=== PATIENT | female | born 1935 | race Caucasian/White ===

== ENCOUNTER 2020-10-27 10:44 | Inpatient (IN) | payer MEDICARE ==
[~2020-10-27] VITALS: Ht 157.5 cm; Wt 92.2 kg
--- NOTE | 2020-10-27 10:44 | NUR ---
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 NEURO PGD: [address] ARORA
--- NOTE | 2020-10-27 10:53 | NUR ---
1042 code neuro paged 1044 neurology paged 1046 pt arrived 1051 code neuro cancelled [address] taylor spoke with neurologist.
--- NOTE | 2020-10-27 11:00 | NUR ---
ERP WAS IN TO SPEAK WITH PT AND [facility]. PER MEDIC, PT'S SON STATED PT'S SPEECH IS SLURRED, DIFFERENT THAN NORMAL AND LLE WEAKNESS CAUSED PT TO FALL. PT STATES SHE DOESN'T FEEL ANY DIFFERENT THAN NORMAL; STATES HER L LEG IS WEAK D/T SWELLING. LABS BEING DRAWN NOW, ERP TO CONSULT WITH NEUROLOGIST.
[2020-10-27] MEDS ORDERED: GABAPENTIN (11:04)
[2020-10-27] MEDS ORDERED: METFORMIN (11:04)
[2020-10-27] MEDS ORDERED: AMLODIPINE (11:04)
[2020-10-27] MEDS ORDERED: METOPROLOL (11:04)
[2020-10-27 11:14] LABS: BASOPHILS % (AUTO) 0 % (0-1); EOSINOPHILS % (AUTO) 4 % (1-7); LYMPHOCYTES % (AUTO) 4 % (22-44); MEAN CORPUSCULAR HEMOGLOBIN 31.9 pg (27.0-34.8); MEAN CORPUSCULAR HGB CONC 34.2 g/dL (32.4-35.8); MEAN PLATELET VOLUME 7.3 fL (7.4-10.4); MONOCYTES % (AUTO) 4 % (2-9); NEUTROPHILS % (AUTO) 88 % (42-75); PLATELET COUNT 195 x10^3/uL (130-400); RED BLOOD COUNT 3.98 x10^6/uL (3.82-5.3); RED CELL DISTRIBUTION WIDTH 13.6 % (9.6-15.2)
[2020-10-27 11:17] LABS: MD NO
[2020-10-27 11:26] LABS: ALBUMIN 3.7 g/dL (3.4-5.0); ANION GAP 9 mmol/L (5-15); CALCIUM 9.7 mg/dL (8.5-10.1); CHLORIDE 106 mmol/L (98-107)
--- NOTE | 2020-10-27 12:15 | NUR ---
US DONE AT . ASSISTED PT [place] [facility] [place] Addendum: 10/27/20 at 1241 by HBENSON PT VERY UNSTEADY WITH STANDING/AMBULATION. 1 PERSON ASSIST. UNABLE TO AMBULATE INDEPENDENTLY.
--- NOTE | 2020-10-27 12:41 | NUR ---
DAUGHTER IN LAW AT BS NOW. ERP AT BS TO DISCUSS POC WITH PT AND DAUGHTER IN LAW.
--- NOTE | 2020-10-27 13:31 | NUR ---
pt son Alfonso [phone] / daughter Erika [phone]
--- NOTE | 2020-10-27 13:51 | NUR ---
PT RETURNED FROM MRI. C/O BEING COLD BUT NO OTHER COMPLAINTS OR S/S OF DISTRESS. WARM BLANKETS AND BEAR HUGGER PROVIDED. VSS. RV'WD POC OF WITH PT.
--- NOTE | 2020-10-27 14:14 | NUR ---
CALLED PT'S DAUGHTER IN LAW ASHA TO LET HER KNOW THAT ERP CLEARED PT FOR DISCHARGE. FAMILY TO COME PICK PT UP.
--- NOTE | 2020-10-27 15:25 | NUR ---
PT HAS BECOME MORE AND MORE ANXIOUS SINCE MARIAH ARRIVED. HAS BEEN UP TO [facility] [place] X2, VOIDING SMALL AMOUNTS. PT BECOMES VERY SOB WITH EXERTION AND MORE WEAK WHEN GETTING UP NOW. ERP AT FOR RECHECK. WILL GIVE BREATHING TX PER ORDERS. Addendum: 10/27/20 at 1814 by HBENSON PT'S MARIAH = ERNESTO,
[2020-10-27] MEDS ORDERED: ALBUTEROL/IPRATROPIUM 2.5MG/0.5MG, 3 ML ONE (15:27)
[2020-10-27] MEDS ORDERED: ALBUTEROL/IPRATROPIUM 2.5MG/0.5MG, 3 ML NPPB ONE (15:30)
[2020-10-27] MEDS ORDERED: ONDANSETRON 2MG/ML, 2ML ONE (16:19)
[2020-10-27] MEDS ORDERED: ONDANSETRON 2MG/ML, 2ML IVPush ONE (16:30)
--- NOTE | 2020-10-27 16:30 | NUR ---
PT NAUSEOUS, VOMITED SMALL AMOUNT CLEAR LIQUID IN EMESIS BAG. MARIAH AT ASSISTING WITH NEEDS. ERP NOTIFIED. PT MEDICATED WITH ZOFRAN PER ORDERS. Addendum: 10/27/20 at 1738 by HBENSON PT HAS BEEN UP TO C SEVERAL TIMES AND VOIDING ONLY SMALL AMOUNTS.
[2020-10-27] MEDS ORDERED: ONDANSETRON 2MG/ML, 2ML IVPush PRN (17:00)
[2020-10-27] MEDS ORDERED: POLYETHYLENE GLYCOL 17 GM PACKET PO PRN (17:00)
[2020-10-27] MEDS ORDERED: SENNA/DOCUSATE TABLET PO PRN (17:00)
[2020-10-27] MEDS ORDERED: ONDANSETRON ODT 4 MG PO PRN (17:00)
--- NOTE | 2020-10-27 17:01 | NUR ---
HOSPITALIST WAS IN TO SEE PT.
--- NOTE | 2020-10-27 17:16 | NUR ---
PT'S SON PARAG CALLED, UPDATED HIM ON POC AND PLAN FOR ADMISSION.
--- NOTE | 2020-10-27 17:34 | NUR ---
STRAIGHT CATH TO OBTAIN URINE SAMPLE. CATH WAS LEFT IN PLACE TO DRAIN BLADDER THEN REMOVED.
[2020-10-27 18:03] LABS: ALBUMIN 3.4 g/dL (3.4-5.0)
[2020-10-27 18:03] LABS: MICROSCOPIC NOT IND
[2020-10-27 18:06] LABS: BILIRUBIN, DIRECT 0.3 mg/dL (0.1-0.2); BILIRUBIN,INDIRECT 0.7 mg/dL (0.0-2.0); LDL/HDL RATIO 0.8 (0.5-3.0); TOTAL PROTEIN 6.6 g/dL (6.4-8.2)
[2020-10-27] MEDS ORDERED: GABA300C PO (18:31)
[2020-10-27] MEDS ORDERED: Metoprolol PO (18:31)
[2020-10-27] MEDS ORDERED: LEVO25TA4 PO (18:31)
[2020-10-27] MEDS ORDERED: metoprolol PO (18:31)
[2020-10-27] MEDS ORDERED: AMLO-211 PO (18:31)
[2020-10-27] MEDS ORDERED: METF500T27 PO (18:31)
--- NOTE | 2020-10-27 18:32 | NUR ---
PT MORE CALM NOW, LYING IN GURNEY, STATES SHE FEELS TIRED. VSS. RV'WD PLAN FOR ADMISSION WITH PT. PT'S SON STATES PT "HAS BEEN UNDER A LOT OF STRESS LATELY" D/T PASSING AWAY RECENTLY, AND PT WILL BE NEEDING TO MOVE IN WITH SON & DAUGHTER IN LAW.
--- NOTE | 2020-10-27 18:32 | NUR ---
CALLED PT'S GRANDSON ERNESTO, AND HAD HIM READ PT'S MEDICATION BOTTLES OVER THE PHONE IN ORDER TO UPDATE PT'S MED REC.
[2020-10-27 19:55] VITALS: BP 146/74
[2020-10-27] MEDS ORDERED: LOSA1TAB25 PO (19:58)
[2020-10-27 20:10] VITALS: BP 146/74
[2020-10-27] MEDS: NS + 20MEQ KCL 1,000 ML IV SCH (20:37)
[2020-10-27] MEDS: ATORVASTATIN 40 MG TABLET PO SCH (20:37)
[2020-10-27] MEDS: INSULIN LISPRO 100 UNITS/ML, PEN SQ-INSULIN SCH (20:37)
[2020-10-27] MEDS: ENOXAPARIN 40 MG/0.4 ML SQ SCH (20:38)
[2020-10-28 00:48] VITALS: BP 95/64
[2020-10-28] MEDS: NS + 20MEQ KCL 1,000 ML IV SCH ×3 (04:53→20:00)
[2020-10-28] MEDS: ASPIRIN 81 MG TABLET EC PO SCH (04:55)
[2020-10-28] MEDS: ACETAMINOPHEN 325 MG TABLET PO PRN ×4 (04:55→22:15)
[2020-10-28 05:18] LABS: BASOPHILS % (AUTO) 0 % (0-1); EOSINOPHILS % (AUTO) 3 % (1-7); LYMPHOCYTES % (AUTO) 5 % (22-44); MEAN CORPUSCULAR HEMOGLOBIN 32.2 pg (27.0-34.8); MEAN CORPUSCULAR HGB CONC 34.5 g/dL (32.4-35.8); MEAN PLATELET VOLUME 7.5 fL (7.4-10.4); MONOCYTES % (AUTO) 7 % (2-9); NEUTROPHILS % (AUTO) 85 % (42-75); PLATELET COUNT 155 x10^3/uL (130-400); RED BLOOD COUNT 3.71 x10^6/uL (3.82-5.3); RED CELL DISTRIBUTION WIDTH 13.4 % (9.6-15.2)
[2020-10-28 05:21] LABS: MD NO
[2020-10-28 05:27] LABS: ALANINE AMINOTRANSFERASE 22 U/L (12-78); ALBUMIN 2.9 g/dL (3.4-5.0); ANION GAP 10 mmol/L (5-15); CALCIUM 8.4 mg/dL (8.5-10.1); CHLORIDE 105 mmol/L (98-107); CREATININE 0.93 mg/dL (0.55-1.02)
[2020-10-28 05:29] LABS: ALKALINE PHOSPHATASE 86 U/L (45-117); BILIRUBIN,TOTAL 0.9 mg/dL (0.2-1.0)
[2020-10-28 06:45] VITALS: BP 117/63
[2020-10-28] MEDS: INSULIN LISPRO 100 UNITS/ML, PEN SQ-INSULIN SCH ×4 (07:00→21:00)
[2020-10-28 12:45] VITALS: BP 114/67
[2020-10-28] MEDS: CYANOCOBALAMIN 1,000 MCG/ML, 1ML IM SCH (15:41)
[2020-10-28] MEDS ORDERED: LIDOCAINE 1%, 10ML ONE (16:16)
[2020-10-28 20:20] LABS: GLUCOSE, CSF 64 mg/dL (40-80); TOTAL PROTEIN,CSF 208 mg/dL (15-45)
[2020-10-28] MEDS: ENOXAPARIN 40 MG/0.4 ML SQ SCH (20:30)
[2020-10-28 21:12] VITALS: BP 144/75
[2020-10-28] MEDS: ATORVASTATIN 40 MG TABLET PO SCH (21:14)
[2020-10-29] VITALS (12 sets, daily range): BP systolic 121–172; BP diastolic 67–95
[2020-10-29] MEDS: NS + 20MEQ KCL 1,000 ML IV SCH (04:00)
[2020-10-29] MEDS: ASPIRIN 81 MG TABLET EC PO SCH (05:21)
[2020-10-29] MEDS: LEVOTHYROXINE 112 MCG TABLET PO SCH (05:21)
[2020-10-29 05:44] LABS: ANION GAP 6 mmol/L (5-15); CALCIUM 8.4 mg/dL (8.5-10.1); CHLORIDE 112 mmol/L (98-107); CREATININE 0.62 mg/dL (0.55-1.02)
[2020-10-29] MEDS: INSULIN LISPRO 100 UNITS/ML, PEN SQ-INSULIN SCH ×4 (07:00→20:46)
[2020-10-29] MEDS: CYANOCOBALAMIN 1,000 MCG/ML, 1ML IM SCH (07:40)
[2020-10-29] MEDS: ACETAMINOPHEN 325 MG TABLET PO PRN ×2 (12:36→18:48)
[2020-10-29] MEDS: ENOXAPARIN 40 MG/0.4 ML SQ SCH (20:30)
[2020-10-29] MEDS: ATORVASTATIN 40 MG TABLET PO SCH (21:10)
[2020-10-30 00:35] VITALS: BP 157/86
[2020-10-30] MEDS: ACETAMINOPHEN 325 MG TABLET PO PRN ×2 (02:17→07:55)
[2020-10-30] MEDS: ASPIRIN 81 MG TABLET EC PO SCH (05:23)
[2020-10-30] MEDS: LEVOTHYROXINE 112 MCG TABLET PO SCH (05:23)
[2020-10-30] MEDS: INSULIN LISPRO 100 UNITS/ML, PEN SQ-INSULIN SCH ×2 (07:00→11:00)
[2020-10-30 07:01] VITALS: BP 163/80
[2020-10-30] MEDS: CYANOCOBALAMIN 1,000 MCG/ML, 1ML IM SCH (07:54)
[2020-10-30] MEDS ORDERED: AMLODIPINE 2.5 MG TABLET PO SCH (09:00)
[2020-10-30] MEDS ORDERED: LOSARTAN 100 MG TAB PO SCH (09:00)
[2020-10-30] MEDS ORDERED: HYDROCHLOROTHIAZIDE 12.5 MG CAPSULE PO SCH (09:00)
[2020-10-30] MEDS ORDERED: METOPROLOL TARTRATE 25 MG TAB PO SCH (09:00)
[2020-10-30] MEDS ORDERED: ASPI81TA45 PO (09:10)
[2020-10-30 12:23] VITALS: BP 139/83
== END 2020-10-30 12:53 | disposition home health service (06) | DRG 71 ==
LOC: ED 11:17 → EDIP 17:00 → 3N 18:31
PROVIDERS: ADMIT Family Medicine; ATTEND Family Medicine
PROC: 0T9B30Z Drainage of Bladder with Drainage Device, Percutaneous Approach (ICD-10-PCS; 2020-10-27)
PROC: 009U3ZX Drainage of Spinal Canal, Percutaneous Approach, Diagnostic (ICD-10-PCS; principal; 2020-10-28)
PROC: B01B1ZZ Fluoroscopy of Spinal Cord using Low Osmolar Contrast (ICD-10-PCS; 2020-10-28)
DX: G93.41 Metabolic encephalopathy (principal); F05 Delirium due to known physiological condition; E53.8 Deficiency of other specified B group vitamins; M19.90 Unspecified osteoarthritis, unspecified site; E03.9 Hypothyroidism, unspecified; E11.40 Type 2 diabetes mellitus with diabetic neuropathy, unspecified; E86.0 Dehydration; E78.5 Hyperlipidemia, unspecified; I10 Essential (primary) hypertension; I35.0 Nonrheumatic aortic (valve) stenosis; R29.6 Repeated falls; G89.29 Other chronic pain; M54.5 Low back pain; W18.39XA Other fall on same level, initial encounter; R47.81 Slurred speech; E66.9 Obesity, unspecified; Z66 Do not resuscitate; Z88.8 Allergy status to other drugs, medicaments and biological substances; Z79.899 Other long term (current) drug therapy; Y93.89 Activity, other specified; Y92.89 Other specified places as the place of occurrence of the external cause; Y99.8 Other external cause status; Z68.37 Body mass index [BMI] 37.0-37.9, adult
CPT/HCPCS: 36415; 62328; 70551; 71045; 80048; 80053; 80061; 80076; 81003; 82040; 82140; 82607; 82945; 82962; 83036; 83921; 84145; 84157; 84443; 85025; 86592; 87070; 87205; 89051; 93005; 93306; 96374; 99291; G0378; J1650; J2405; J3480; J3420

== ENCOUNTER 2020-11-10 00:06 | Inpatient (IN) | payer MEDICARE ==
[~2020-11-10] VITALS: Ht 157.5 cm; Wt 97.8 kg
[~2020-11-10 00:06] MED LIST: AMLO-211 PO; AMLODIPINE; ASPI81TA45 PO; GABA300C PO; GABAPENTIN; LEVO25TA4 PO; LOSA1TAB25 PO; METF500T27 PO; METFORMIN; METOPROLOL; Metoprolol PO; metoprolol PO
[2020-11-10] MEDS ORDERED: SODIUM CHLORIDE 0.9% 1,000 ML IV ONE (00:30)
--- NOTE | 2020-11-10 00:40 | NUR ---
SEE TRIAGE; DR. SALCEDO WAS IN TO EVAL PT. AND DISCUSS POC. PT. SPEECH BECOMING MORE CLEAR SINCE ARRIVAL. LAB AT FOR BLOOD DRAW AT THIS TIME.
[2020-11-10 01:01] LABS: BASOPHILS % (AUTO) 0 % (0-1); EOSINOPHILS % (AUTO) 1 % (1-7); LYMPHOCYTES % (AUTO) 12 % (22-44); MEAN CORPUSCULAR HEMOGLOBIN 31.9 pg (27.0-34.8); MEAN CORPUSCULAR HGB CONC 33.9 g/dL (32.4-35.8); MEAN PLATELET VOLUME 7.5 fL (7.4-10.4); MONOCYTES % (AUTO) 4 % (2-9); NEUTROPHILS % (AUTO) 83 % (42-75); PLATELET COUNT 376 x10^3/uL (130-400); RED BLOOD COUNT 4.64 x10^6/uL (3.82-5.3); RED CELL DISTRIBUTION WIDTH 13.5 % (9.6-15.2)
--- NOTE | 2020-11-10 01:02 | NUR ---
2 SETS OF BLOOD CULTURES WERE COMPLETED. STRAIGHT CATH UA COMPLETED; PT. TOLERATED WELL. WALKED TO LAB. PT. NOW A&O X 4 WITH NO SLURRED SPEECH. PT. C/O ITCHING TO GROIN RASH. PUREWICK WAS PLACED AFTER CATH UA PT. WAS REQUESTING BR.
[2020-11-10 01:03] LABS: MD NO
[2020-11-10 01:10] LABS: MICROSCOPIC NOT IND
[2020-11-10 01:13] LABS: ALANINE AMINOTRANSFERASE 48 U/L (12-78); ALBUMIN 3.6 g/dL (3.4-5.0); ANION GAP 10 mmol/L (5-15); CALCIUM 8.8 mg/dL (8.5-10.1); CHLORIDE 106 mmol/L (98-107)
[2020-11-10 01:17] LABS: ALKALINE PHOSPHATASE 93 U/L (45-117); BILIRUBIN,TOTAL 1.4 mg/dL (0.2-1.0); TOTAL PROTEIN 6.6 g/dL (6.4-8.2); TROPONIN I < 0.015 ng/mL (0.000-0.045)
[2020-11-10] MEDS ORDERED: DIPHENHYDRAMINE 50 MG/ML, 1ML IVPush ONE (01:30)
--- NOTE | 2020-11-10 01:38 | NUR ---
PT. STATES "I CAN'T TAKE BENADRYL IT WILL MAKE ME GO CRAZY." DISCUSSED WITH DR. SALCEDO NEW VERBAL ORDER FOR 25MG PO HYDROXYZINE. PT. PASSED SWALLOW SCREEN PRIOR TO [employer] EXCHANGE ADMINISTRATOR.
[2020-11-10] MEDS ORDERED: PROMETHAZINE 25 MG/ML, 1ML ONE (02:27)
[2020-11-10] MEDS ORDERED: PROMETHAZINE 25 MG/ML, 1ML IM ONE (02:30)
--- NOTE | 2020-11-10 02:34 | NUR ---
SKIP RN: PT REPOSITIONED, MEDICATED FOR NAUSEA/ PT CO ABD PAIN/IRRITAION. CALL LIGHT IN PLACE, COOL CLOTH TO HEAD. REMOVED WATER AND ASKED TO STAY NPO, PT VERBALIZED.
--- NOTE | 2020-11-10 03:49 | NUR ---
FIRST ATTEMPT TO CALL REPORT TO FLOOR.
--- NOTE | 2020-11-10 03:56 | NUR ---
REPORT TO KIMI BHAKTA. FLOOR READY FOR PT. TRANSPOT.
[2020-11-10] MEDS: INSULIN LISPRO 100 UNITS/ML, PEN SQ-INSULIN SCH ×5 (04:00→21:59)
[2020-11-10] MEDS ORDERED: LABETALOL 5MG/ML, 20ML IVPush PRN (04:00)
[2020-11-10] MEDS ORDERED: POTASSIUM CHLORIDE 40 MEQ in SODIUM CHLORIDE 0.9% 500 ML IV ONE (04:00)
[2020-11-10] MEDS ORDERED: PROMETHAZINE 25 MG/ML, 1ML IM PRN (04:00)
[2020-11-10] MEDS ORDERED: ACETAMINOPHEN 325 MG TABLET PO PRN (04:00)
[2020-11-10] MEDS ORDERED: OMNIPAQUE 350 MG/ML, 100ML BOTTLE ONE (04:35)
[2020-11-10 05:03] VITALS: BP 149/68
[2020-11-10] MEDS: ASPIRIN 81 MG TABLET EC PO SCH (05:27)
[2020-11-10] MEDS: LEVOTHYROXINE 112 MCG TABLET PO SCH (05:27)
[2020-11-10 06:43] VITALS: BP 146/82
[2020-11-10] MEDS: LOSARTAN 100 MG TAB PO SCH (09:53)
[2020-11-10] MEDS: METOPROLOL TARTRATE 25 MG TAB PO SCH ×2 (09:53→21:26)
[2020-11-10] MEDS: AMLODIPINE 10 MG TAB PO SCH (09:53)
[2020-11-10] MEDS: HYDROCHLOROTHIAZIDE 12.5 MG CAPSULE PO SCH (09:53)
[2020-11-10 12:22] LABS: BASOPHILS % (AUTO) 0 % (0-1); EOSINOPHILS % (AUTO) 2 % (1-7); LYMPHOCYTES % (AUTO) 28 % (22-44); MEAN CORPUSCULAR HEMOGLOBIN 31.6 pg (27.0-34.8); MEAN CORPUSCULAR HGB CONC 33.6 g/dL (32.4-35.8); MEAN PLATELET VOLUME 7.6 fL (7.4-10.4); MONOCYTES % (AUTO) 5 % (2-9); NEUTROPHILS % (AUTO) 65 % (42-75); PLATELET COUNT 340 x10^3/uL (130-400); RED BLOOD COUNT 4.27 x10^6/uL (3.82-5.3); RED CELL DISTRIBUTION WIDTH 13.9 % (9.6-15.2)
[2020-11-10 12:25] LABS: ALBUMIN 3.3 g/dL (3.4-5.0); CHLORIDE 105 mmol/L (98-107)
[2020-11-10 12:27] LABS: MD NO
[2020-11-10 12:30] LABS: ALANINE AMINOTRANSFERASE 42 U/L (12-78); ALKALINE PHOSPHATASE 87 U/L (45-117); ANION GAP 7 mmol/L (5-15); BILIRUBIN,TOTAL 1.8 mg/dL (0.2-1.0); CALCIUM 9.2 mg/dL (8.5-10.1); CREATININE 0.91 mg/dL (0.55-1.02); TOTAL PROTEIN 6.4 g/dL (6.4-8.2)
[2020-11-10 12:52] VITALS: BP 125/77
[2020-11-10] MEDS: POLYETHYLENE GLYCOL 17 GM PACKET NG SCH (17:17)
[2020-11-10 19:40] VITALS: BP 127/80
[2020-11-10 21:26] VITALS: BP 126/81
[2020-11-11 01:01] VITALS: BP 132/72
[2020-11-11 05:51] LABS: BASOPHILS % (AUTO) 0 % (0-1); EOSINOPHILS % (AUTO) 3 % (1-7); LYMPHOCYTES % (AUTO) 25 % (22-44); MEAN CORPUSCULAR HEMOGLOBIN 32.4 pg (27.0-34.8); MEAN CORPUSCULAR HGB CONC 34.2 g/dL (32.4-35.8); MEAN PLATELET VOLUME 7.4 fL (7.4-10.4); MONOCYTES % (AUTO) 4 % (2-9); NEUTROPHILS % (AUTO) 68 % (42-75); PLATELET COUNT 293 x10^3/uL (130-400); RED BLOOD COUNT 3.99 x10^6/uL (3.82-5.3); RED CELL DISTRIBUTION WIDTH 13.8 % (9.6-15.2)
[2020-11-11] MEDS: LEVOTHYROXINE 112 MCG TABLET PO SCH (05:52)
[2020-11-11] MEDS: ASPIRIN 81 MG TABLET EC PO SCH (05:52)
[2020-11-11 05:56] LABS: CHLORIDE 105 mmol/L (98-107)
[2020-11-11 06:02] LABS: ALANINE AMINOTRANSFERASE 34 U/L (12-78); ALBUMIN 3.3 g/dL (3.4-5.0); ALKALINE PHOSPHATASE 81 U/L (45-117); ANION GAP 7 mmol/L (5-15); BILIRUBIN,TOTAL 2.1 mg/dL (0.2-1.0); CALCIUM 9.3 mg/dL (8.5-10.1); CREATININE 0.73 mg/dL (0.55-1.02); TOTAL PROTEIN 6.2 g/dL (6.4-8.2)
[2020-11-11 06:05] LABS: MD NO
[2020-11-11] MEDS ORDERED: MAGNESIUM SULFATE PMX 2GM/50ML 50 ML IV ONE (07:00)
[2020-11-11] MEDS: INSULIN LISPRO 100 UNITS/ML, PEN SQ-INSULIN SCH ×4 (07:00→20:12)
[2020-11-11 07:15] VITALS: BP 147/85
[2020-11-11] MEDS: POLYETHYLENE GLYCOL 17 GM PACKET NG SCH (08:31)
[2020-11-11] MEDS: METOPROLOL TARTRATE 25 MG TAB PO SCH ×2 (08:54→20:06)
[2020-11-11] MEDS: SENNA/DOCUSATE TABLET PO SCH (08:54)
[2020-11-11] MEDS: LOSARTAN 100 MG TAB PO SCH (08:54)
[2020-11-11] MEDS: HYDROCHLOROTHIAZIDE 12.5 MG CAPSULE PO SCH (08:54)
[2020-11-11] MEDS: AMLODIPINE 10 MG TAB PO SCH (08:55)
[2020-11-11 12:14] VITALS: BP 132/76
[2020-11-11] MEDS ORDERED: MORPHINE SULFATE 4 MG/ML, 1ML IVPush PRN (13:30)
[2020-11-11] MEDS ORDERED: CETIRIZINE 10 MG TABLET PO SCH (16:00)
[2020-11-11] MEDS: LORATADINE 10 MG TABLET PO SCH (17:20)
[2020-11-11 18:52] VITALS: BP 132/72
[2020-11-12 00:51] VITALS: BP 122/71
[2020-11-12 06:03] LABS: BASOPHILS % (AUTO) 0 % (0-1); EOSINOPHILS % (AUTO) 3 % (1-7); LYMPHOCYTES % (AUTO) 31 % (22-44); MEAN CORPUSCULAR HEMOGLOBIN 32.5 pg (27.0-34.8); MEAN CORPUSCULAR HGB CONC 34.9 g/dL (32.4-35.8); MEAN PLATELET VOLUME 7.5 fL (7.4-10.4); MONOCYTES % (AUTO) 3 % (2-9); NEUTROPHILS % (AUTO) 63 % (42-75); PLATELET COUNT 246 x10^3/uL (130-400); RED BLOOD COUNT 3.43 x10^6/uL (3.82-5.3); RED CELL DISTRIBUTION WIDTH 13.4 % (9.6-15.2)
[2020-11-12 06:06] LABS: MD NO
[2020-11-12] MEDS: ASPIRIN 81 MG TABLET EC PO SCH (06:13)
[2020-11-12] MEDS: LEVOTHYROXINE 112 MCG TABLET PO SCH (06:13)
[2020-11-12 06:16] LABS: ANION GAP 6 mmol/L (5-15); CALCIUM 8.9 mg/dL (8.5-10.1); CHLORIDE 104 mmol/L (98-107)
[2020-11-12 06:20] LABS: ALANINE AMINOTRANSFERASE 32 U/L (12-78); ALKALINE PHOSPHATASE 71 U/L (45-117); BILIRUBIN,TOTAL 2.1 mg/dL (0.2-1.0); CREATININE 0.69 mg/dL (0.55-1.02); TOTAL PROTEIN 5.7 g/dL (6.4-8.2)
[2020-11-12] MEDS: INSULIN LISPRO 100 UNITS/ML, PEN SQ-INSULIN SCH ×4 (06:58→20:34)
[2020-11-12 07:33] VITALS: BP 127/76
[2020-11-12] MEDS: POLYETHYLENE GLYCOL 17 GM PACKET NG SCH (08:50)
[2020-11-12] MEDS: HYDROCHLOROTHIAZIDE 12.5 MG CAPSULE PO SCH (08:52)
[2020-11-12] MEDS: LOSARTAN 100 MG TAB PO SCH (08:53)
[2020-11-12] MEDS: AMLODIPINE 10 MG TAB PO SCH (08:53)
[2020-11-12] MEDS: METOPROLOL TARTRATE 25 MG TAB PO SCH ×2 (08:53→20:30)
[2020-11-12] MEDS: LORATADINE 10 MG TABLET PO SCH (08:53)
[2020-11-12] MEDS: SENNA/DOCUSATE TABLET PO SCH (08:53)
[2020-11-12] MEDS ORDERED: CYANOCOBALAMIN 1,000 MCG/ML, 1ML IM ONE (12:00)
[2020-11-12 13:04] VITALS: BP 106/65
[2020-11-12 18:34] VITALS: BP 121/66
[2020-11-13 01:32] VITALS: BP 127/70
[2020-11-13 05:38] LABS: ALANINE AMINOTRANSFERASE 38 U/L (12-78); ANION GAP 8 mmol/L (5-15); BASOPHILS % (AUTO) 0 % (0-1); CALCIUM 8.7 mg/dL (8.5-10.1); CHLORIDE 108 mmol/L (98-107); CREATININE 0.63 mg/dL (0.55-1.02); EOSINOPHILS % (AUTO) 6 % (1-7); LYMPHOCYTES % (AUTO) 35 % (22-44); MEAN CORPUSCULAR HEMOGLOBIN 32.5 pg (27.0-34.8); MEAN CORPUSCULAR HGB CONC 34.4 g/dL (32.4-35.8); MEAN PLATELET VOLUME 7.6 fL (7.4-10.4); MONOCYTES % (AUTO) 6 % (2-9); NEUTROPHILS % (AUTO) 53 % (42-75); PLATELET COUNT 228 x10^3/uL (130-400); RED BLOOD COUNT 3.33 x10^6/uL (3.82-5.3); RED CELL DISTRIBUTION WIDTH 13.6 % (9.6-15.2)
[2020-11-13 05:39] LABS: MD NO
[2020-11-13 05:40] LABS: ALKALINE PHOSPHATASE 76 U/L (45-117); BILIRUBIN,TOTAL 1.4 mg/dL (0.2-1.0); TOTAL PROTEIN 5.8 g/dL (6.4-8.2)
[2020-11-13] MEDS: LEVOTHYROXINE 112 MCG TABLET PO SCH (06:08)
[2020-11-13] MEDS: ASPIRIN 81 MG TABLET EC PO SCH (06:08)
[2020-11-13] MEDS: INSULIN LISPRO 100 UNITS/ML, PEN SQ-INSULIN SCH ×2 (07:00→11:00)
[2020-11-13] MEDS ORDERED: POTASSIUM CHLORIDE 20 MEQ TAB.ER.PRT PO ONE (07:30)
[2020-11-13 07:52] VITALS: BP 124/66
[2020-11-13] MEDS: LOSARTAN 100 MG TAB PO SCH (09:04)
[2020-11-13] MEDS: LORATADINE 10 MG TABLET PO SCH (09:04)
[2020-11-13] MEDS: METOPROLOL TARTRATE 25 MG TAB PO SCH (09:05)
[2020-11-13] MEDS: AMLODIPINE 10 MG TAB PO SCH (09:05)
[2020-11-13] MEDS: HYDROCHLOROTHIAZIDE 12.5 MG CAPSULE PO SCH (09:05)
[2020-11-13] MEDS: SENNA/DOCUSATE TABLET PO SCH (09:05)
[2020-11-13] MEDS: POLYETHYLENE GLYCOL 17 GM PACKET NG SCH (09:14)
[2020-11-13] MEDS ORDERED: HYDR-826 PO (09:20)
[2020-11-13] MEDS ORDERED: POLY17PO5 NG (09:20)
[2020-11-13] MEDS ORDERED: LORA-247 PO (09:20)
[2020-11-13 13:26] VITALS: BP 123/64
== END 2020-11-13 14:34 | disposition home health service (06) | DRG 391 ==
LOC: ED 00:36 → EDIP 04:25 → 5SO 04:44 → 3N 11-11 09:41
PROVIDERS: ADMIT Family Medicine; ATTEND Family Medicine
PROC: 0T9B70Z Drainage of Bladder with Drainage Device, Via Natural or Artificial Opening (ICD-10-PCS; principal; 2020-11-10)
DX: K52.9 Noninfective gastroenteritis and colitis, unspecified (principal); G93.41 Metabolic encephalopathy; E87.2 Acidosis; K57.90 Diverticulosis of intestine, part unspecified, without perforation or abscess without bleeding; E03.9 Hypothyroidism, unspecified; E11.9 Type 2 diabetes mellitus without complications; E83.42 Hypomagnesemia; E86.0 Dehydration; E53.8 Deficiency of other specified B group vitamins; E87.6 Hypokalemia; K59.00 Constipation, unspecified; I10 Essential (primary) hypertension; L50.9 Urticaria, unspecified; T36.3X5A Adverse effect of macrolides, initial encounter; M19.90 Unspecified osteoarthritis, unspecified site; E80.6 Other disorders of bilirubin metabolism; Z96.651 Presence of right artificial knee joint; D72.829 Elevated white blood cell count, unspecified; R29.6 Repeated falls; Z88.1 Allergy status to other antibiotic agents; Y92.89 Other specified places as the place of occurrence of the external cause; Z87.891 Personal history of nicotine dependence; Z90.49 Acquired absence of other specified parts of digestive tract; Z82.3 Family history of stroke
CPT/HCPCS: 36415; 70450; 71045; 74177; 74181; 80053; 81003; 82607; 82962; 83036; 83605; 83690; 83735; 84145; 84484; 85025; 87040; 93005; 96372; 99285; G0378; J2550; J3480; Q9967; J3420; J3475; J7030; J7040; Q0177

== ENCOUNTER 2020-11-29 14:24 | Emergency (ER) | payer MEDICARE ==
[~2020-11-29] VITALS: Ht 157.5 cm; Wt 88.0 kg
[~2020-11-29 14:24] MED LIST changes: +HYDR-826 PO; +LORA-247 PO; +POLY17PO5 NG
--- NOTE | 2020-11-29 14:25 | NUR ---
Pt brought into room by EMS, [facility] as [facility] stand and pivot with 2 person heavy assist, changed into gown, placed on bedside monitor and optometrist president/practice owner completed.
--- NOTE | 2020-11-29 15:07 | NUR ---
Pt appears to be next to be picked up by MD. Awaiting MD exam.
--- NOTE | 2020-11-29 15:23 | NUR ---
Assisted pt to BSC, clean catch with hat attempted without success. Pt states she feels urgency to urinate without being able to go at all. Pt assisted back to bed without incident. maximum 1-person assist for stand and pivot. RLE has more weakness with movement than LLE, though both are described as very heavy to lift and like standing on blisters.
--- NOTE | 2020-11-29 16:34 | NUR ---
Just arriving from radiology now.
--- NOTE | 2020-11-29 16:40 | NUR ---
Pt assisted to BSC again for attempt to urinate.
[2020-11-29] MEDS ORDERED: ONDA4TAB7 PO (16:46)
[2020-11-29] MEDS ORDERED: CHOL100011 PO (16:46)
[2020-11-29] MEDS ORDERED: MAGN400T9 PO (16:46)
[2020-11-29] MEDS ORDERED: OMEP-110 PO (16:46)
--- NOTE | 2020-11-29 16:52 | NUR ---
Pt back to bed without incident with maximum 1 person assist. Small drop of clear, light yellow uop noted in hat. Not enough uop for UA specimen.
--- NOTE | 2020-11-29 18:00 | NUR ---
Purewick applied to pt and suction turned on. Instructions on use provided with stated understanding.
--- NOTE | 2020-11-29 18:10 | NUR ---
Report given to meal break RNJordy, as well as updating pt's daughter in law at this time.
--- NOTE | 2020-11-29 18:40 | NUR ---
Care reassumed. Enema order noted and Jordy states it has not yet been done.
--- NOTE | 2020-11-29 19:07 | NUR ---
Warm soap suds enema administration in progress. Pt able to hold enema fluid for 10 minutes. Currently, pt is on dry chucks pads and fracture bedpan. Plan for being up on BSC after a few minutes on bedpan set with pt. BSC remains present in room.
--- NOTE | 2020-11-29 19:15 | NUR ---
Pt assisted to BSC at this time. Small amount of brown-stained watery liquid noted in bedpan prior to getting up out of bed. Pt instructed to give small cirlcle abd rubs from the RLQ up and over to the LLQ while sitting on the BSC. Pt able to demonstrate this and call light placed in reach.
--- NOTE | 2020-11-29 20:10 | NUR ---
Pt with small amount of hard round balls of stool mixed with liquid, brown stool/enema fluid in BSC. Pt assisted with perianal cleansing and return to bed. Call light in reach, BSC removed and sanitized. MD aware of success. Pt states she is willing to go home to finish working on resolution of constipation. Family stated they would return around 1999, but is not here at this time.
[2020-11-29] MEDS ORDERED: MAGNESIUM CITRATE 300ML ORAL SOL ONE (20:18)
--- NOTE | 2020-11-29 20:21 | NUR ---
Pt on phone with family that states they cannot return for approx. 45 more minutes. Pt reassured that she can stay in room until they arrive.
--- NOTE | 2020-11-29 20:23 | NUR ---
Bottle of mag citrate brought to bedside.
[2020-11-29] MEDS ORDERED: MAGNESIUM CITRATE 300ML ORAL SOL PO ONE (20:30)
[2020-11-29 22:00] VITALS: BP 155/75
== END 2020-11-29 22:02 | disposition home or self-care (01) ==
LOC: ED 21:30
DX: K59.00 Constipation, unspecified (principal); R11.2 Nausea with vomiting, unspecified; I10 Essential (primary) hypertension; E11.9 Type 2 diabetes mellitus without complications
CPT/HCPCS: 74021; 99285

== ENCOUNTER 2021-02-03 17:56 | Inpatient (IN) | payer MEDICARE ==
[~2021-02-03] VITALS: Ht 172.7 cm; Wt 82.3 kg
[~2021-02-03 17:56] MED LIST changes: +CHOL100011 PO; +MAGN400T9 PO; +OMEP-110 PO; +ONDA4TAB7 PO
--- NOTE | 2021-02-03 18:10 | NUR ---
CODE NEURO CALLED AT 1756, WANTED TO SEE PT IN ROOM. PT TO CT AT 1803.
[2021-02-03 18:13] LABS: MEAN CORPUSCULAR HGB CONC 34.3 g/dL (32.4-35.8); MEAN PLATELET VOLUME 7.1 fL (7.4-10.4); PLATELET COUNT 247 x10^3/uL (130-400); RED CELL DISTRIBUTION WIDTH 13.7 % (9.6-15.2)
[2021-02-03 18:27] LABS: TROPONIN I < 0.015 ng/mL (0.000-0.045)
[2021-02-03 18:30] LABS: INTERNATIONAL NORMALIZED RATIO 1.03 (0.93-1.1)
--- NOTE | 2021-02-03 18:41 | NUR ---
Back to room [address]
[2021-02-03] MEDS ORDERED: OMNIPAQUE 350 MG/ML, 100ML BOTTLE ONE ×2 (18:44→18:52)
[2021-02-03 18:48] LABS: <PLATELET ESTIMATE> ADEQUATE; <RBC MORPHOLOGY> NORMAL; BAND#(MANUAL) 0.82 x10^3/uL; BANDS%(MANUAL) 8 % (0-7); LYMPH#(MANUAL) 0.41 x10^3/uL (1-3.4); LYMPHS% (MANUAL) 4 % (22-44); METAMYELOCYTES% (MANUAL) 1 % (0-1); MONOS#(MANUAL) 0.31 x10^3/uL (0.3-2.7); MONOS% (MANUAL) 3 % (2-9); SEG#(MANUAL) 8.57 x10^3/uL (1.8-6.8); SEGS% (MANUAL) 84 % (42-75)
[2021-02-03 18:49] LABS: <PLT MORPHOLOGY> NORMAL PLT MORPH; PMNS WITH VACUOLES 1+
[2021-02-03] MEDS ORDERED: FENTANYL PF 100 MCG/2ML ONE (18:55)
--- NOTE | 2021-02-03 19:08 | NUR ---
Tele neuro in room [facility]
[2021-02-03] MEDS ORDERED: FENTANYL PF 100 MCG/2ML IV ONE (19:30)
[2021-02-03 19:35] LABS: MICROSCOPIC NOT IND
[2021-02-03 19:49] LABS: AMPHETAMINE SCREEN, URINE Negative (Negative); BARBITURATE SCREEN, URINE Negative (Negative); BENZODIAZEPINE SCREEN, URINE Positive (Negative); CANNABINOID SCREEN, URINE Negative (Negative); COCAINE SCREEN, URINE Negative (Negative); METHADONE SCREEN, URINE Negative (Negative); OPIATE SCREEN, URINE Negative (Negative)
--- NOTE | 2021-02-03 22:00 | NUR ---
pt back from MRI, all needs in reach, call light in reach, NAD, pt wanted to use the bedside comode but wasnt able to get out of bed on her own or with a one person assist, pt urinated in her gown, this RN changed her gown and cleaned her,
--- NOTE | 2021-02-03 22:10 | NUR ---
pt asleep in bed, all needs in reach, call light in reach, NAD
--- NOTE | 2021-02-03 22:47 | NUR ---
ASSUMED CARE OF PATIENT. REPORT GIVEN FROM KIMI SALOMON
--- NOTE | 2021-02-03 22:51 | NUR ---
DAUGHTER NUMBER: ASHA [phone]
--- NOTE | 2021-02-03 22:53 | NUR ---
TRIED TO [place] DAUGHTER FOR MED REC, NO ANSWER. PT IS NOT ABLE TO DO MED REC AT THIS TIME.
--- NOTE | 2021-02-03 23:51 | NUR ---
PT RESTING IN ROOM. VS STABLE. NO ACUTE DISTRESS NOTED. CALL LIGHT IN PLACE. WILL CONTINUE TO MONITOR.
[2021-02-04] MEDS ORDERED: METFORMIN (00:27)
--- NOTE | 2021-02-04 00:44 | NUR ---
PT IS AWAKE AND ALERT. PT IS A&O X4. VS STABLE. CALL LIGHT IN PLACE. WILL CONTINUE TO CONTINUE TO MONITOR.
--- NOTE | 2021-02-04 01:02 | NUR ---
BEDSIDE REPORT GIVEN TO KIMI FUNG
--- NOTE | 2021-02-04 01:10 | NUR ---
RECEIVED REPORT FROM KIMI URRUTIA. MOVED PT FROM ROOM 6 TO ROOM 14, BLOOD SUGAR TAKEN, 173. PT GIVEN LEMON SWAB FOR DRY MOUTH AND PUREWICK. RESTING COMFORTABLY ON GURNEY, DENIES NEEDS AT THIS TIME.
--- NOTE | 2021-02-04 01:16 | NUR ---
TASK RN: PT MOVED FROM ED ROOM 6 TO ED ROOM 14. PLACED ON CONTINUOUS MONITOING AND PURE WICK PLACED PER PT REQUEST. NO ADDITIONAL NEEDS AT THIS TIME. CALL LIGHT IN REACH
[2021-02-04] MEDS ORDERED: ASPIRIN 325 MG TABLET PO ONE (01:30)
--- NOTE | 2021-02-04 02:22 | NUR ---
Pt to be admitted to [facility], room 508-1. Report called to FELY BOLDEN.
[2021-02-04] MEDS ORDERED: OXYcodone IR 5MG TABLET PO PRN (03:00)
[2021-02-04] MEDS ORDERED: MELATONIN 5 MG TABLET PO PRN (03:00)
[2021-02-04] MEDS ORDERED: TEMAZEPAM 15 MG CAPSULE PO PRN (03:00)
[2021-02-04] MEDS ORDERED: hydrALAzine 20 MG/ML, 1ML IVPush PRN (03:00)
[2021-02-04] MEDS ORDERED: LORazepam 2 MG/ML, 1ML IVPush PRN (03:00)
[2021-02-04] MEDS ORDERED: BISACODYL 10 MG SUPP PR PRN (03:00)
[2021-02-04] MEDS ORDERED: POLYETHYLENE GLYCOL 17 GM PACKET PO PRN (03:00)
[2021-02-04] MEDS ORDERED: ONDANSETRON 2MG/ML, 2ML IVPush PRN (03:00)
[2021-02-04] MEDS ORDERED: DOCUSATE 100 MG CAPSULE PO PRN (03:00)
[2021-02-04 03:14] VITALS: BP 116/63
[2021-02-04 06:00] LABS: CHOL/HDL RATIO 2.1; LDL/HDL RATIO 0.7 (0.5-3.0)
[2021-02-04] MEDS: HEPARIN 5,000 UNITS/ML, 1ML SQ SCH ×3 (06:08→22:06)
[2021-02-04 06:25] LABS: BASOPHILS % (AUTO) 0 % (0-1); EOSINOPHILS % (AUTO) 2 % (1-7); LYMPHOCYTES % (AUTO) 4 % (22-44); MEAN CORPUSCULAR HEMOGLOBIN 31.8 pg (27.0-34.8); MEAN PLATELET VOLUME 7.4 fL (7.4-10.4); MONOCYTES % (AUTO) 5 % (2-9); NEUTROPHILS % (AUTO) 89 % (42-75); PLATELET COUNT 263 x10^3/uL (130-400); RED BLOOD COUNT 4.08 x10^6/uL (3.82-5.3); RED CELL DISTRIBUTION WIDTH 13.6 % (9.6-15.2)
[2021-02-04 06:32] LABS: ANION GAP 11 mmol/L (5-15); CALCIUM 9.6 mg/dL (8.5-10.1); CHLORIDE 103 mmol/L (98-107); CREATININE 0.85 mg/dL (0.55-1.02)
[2021-02-04 07:00] VITALS: BP 125/73
[2021-02-04] MEDS: INSULIN LISPRO 100 UNITS/ML, PEN SQ-INSULIN SCH ×4 (07:00→21:00)
[2021-02-04] MEDS ORDERED: FAMOTIDINE 20 MG TABLET PO SCH ×2 (09:00→21:00)
[2021-02-04] MEDS: METOPROLOL TARTRATE 25 MG TAB PO SCH ×2 (10:02→22:06)
[2021-02-04] MEDS: CHOLECALCIFEROL 1,000 UNIT TABLET PO SCH (10:02)
[2021-02-04] MEDS: HYDROCHLOROTHIAZIDE 12.5 MG CAPSULE PO SCH (10:02)
[2021-02-04] MEDS: ASPIRIN 81 MG TABLET EC PO SCH (10:02)
[2021-02-04] MEDS: LOSARTAN 100 MG TAB PO SCH (10:03)
[2021-02-04] MEDS: OMEPRAZOLE 20 MG CAPSULE.DR PO SCH (10:03)
[2021-02-04] MEDS: LEVOTHYROXINE 112 MCG TABLET PO SCH (10:03)
[2021-02-04 12:34] VITALS: BP 92/57
[2021-02-04] MEDS: ACETAMINOPHEN 325 MG TABLET PO PRN (17:49)
[2021-02-04 19:20] VITALS: BP 95/68
[2021-02-05 01:34] VITALS: BP 100/60
[2021-02-05] MEDS: ACETAMINOPHEN 325 MG TABLET PO PRN ×2 (03:04→19:33)
[2021-02-05 04:36] LABS: BASOPHILS % (AUTO) 0 % (0-1); EOSINOPHILS % (AUTO) 7 % (1-7); LYMPHOCYTES % (AUTO) 9 % (22-44); MEAN CORPUSCULAR HEMOGLOBIN 32.3 pg (27.0-34.8); MEAN CORPUSCULAR HGB CONC 34.5 g/dL (32.4-35.8); MEAN PLATELET VOLUME 7.1 fL (7.4-10.4); MONOCYTES % (AUTO) 5 % (2-9); NEUTROPHILS % (AUTO) 80 % (42-75); PLATELET COUNT 211 x10^3/uL (130-400); RED BLOOD COUNT 3.62 x10^6/uL (3.82-5.3); RED CELL DISTRIBUTION WIDTH 13.2 % (9.6-15.2)
[2021-02-05 04:46] LABS: ANION GAP 6 mmol/L (5-15); CALCIUM 8.9 mg/dL (8.5-10.1); CHLORIDE 101 mmol/L (98-107); CREATININE 0.83 mg/dL (0.55-1.02)
[2021-02-05] MEDS: ASPIRIN 81 MG TABLET EC PO SCH (06:00)
[2021-02-05] MEDS: HEPARIN 5,000 UNITS/ML, 1ML SQ SCH ×3 (06:00→21:43)
[2021-02-05 06:48] VITALS: BP 107/70
[2021-02-05] MEDS: INSULIN LISPRO 100 UNITS/ML, PEN SQ-INSULIN SCH ×4 (07:00→21:00)
[2021-02-05] MEDS: OMEPRAZOLE 20 MG CAPSULE.DR PO SCH (09:16)
[2021-02-05] MEDS: CHOLECALCIFEROL 1,000 UNIT TABLET PO SCH (09:16)
[2021-02-05] MEDS: LOSARTAN 100 MG TAB PO SCH (09:17)
[2021-02-05] MEDS: LEVOTHYROXINE 112 MCG TABLET PO SCH (09:17)
[2021-02-05] MEDS: HYDROCHLOROTHIAZIDE 12.5 MG CAPSULE PO SCH (09:19)
[2021-02-05] MEDS: METOPROLOL TARTRATE 25 MG TAB PO SCH ×2 (09:19→21:44)
[2021-02-05 11:29] VITALS: BP 101/62
[2021-02-05 19:30] VITALS: BP 125/73
[2021-02-06 01:08] VITALS: BP 135/79
[2021-02-06] MEDS: ACETAMINOPHEN 325 MG TABLET PO PRN ×2 (04:20→09:42)
[2021-02-06] MEDS: HEPARIN 5,000 UNITS/ML, 1ML SQ SCH ×3 (05:42→23:33)
[2021-02-06] MEDS: ASPIRIN 81 MG TABLET EC PO SCH (05:42)
[2021-02-06] MEDS: INSULIN LISPRO 100 UNITS/ML, PEN SQ-INSULIN SCH ×4 (07:00→20:58)
[2021-02-06 07:21] VITALS: BP 126/74
[2021-02-06] MEDS: CHOLECALCIFEROL 1,000 UNIT TABLET PO SCH (10:35)
[2021-02-06] MEDS: LEVOTHYROXINE 112 MCG TABLET PO SCH (10:35)
[2021-02-06] MEDS: METOPROLOL TARTRATE 25 MG TAB PO SCH ×2 (10:36→21:36)
[2021-02-06] MEDS: LOSARTAN 100 MG TAB PO SCH (10:36)
[2021-02-06] MEDS: OMEPRAZOLE 20 MG CAPSULE.DR PO SCH (10:36)
[2021-02-06] MEDS: HYDROCHLOROTHIAZIDE 12.5 MG CAPSULE PO SCH (10:36)
[2021-02-06] MEDS: LIDODERM 5% PATCH TD SCH (11:00)
[2021-02-06] MEDS: MELOXICAM 15 MG TABLET PO SCH (11:01)
[2021-02-06 12:21] VITALS: BP 114/57
[2021-02-06 19:06] VITALS: BP 143/70
[2021-02-06 21:35] VITALS: BP 124/74
[2021-02-07 00:29] VITALS: BP 130/67
[2021-02-07] MEDS: ASPIRIN 81 MG TABLET EC PO SCH (05:47)
[2021-02-07 07:26] VITALS: BP 131/79
[2021-02-07] MEDS: HEPARIN 5,000 UNITS/ML, 1ML SQ SCH ×3 (07:37→22:02)
[2021-02-07] MEDS: INSULIN LISPRO 100 UNITS/ML, PEN SQ-INSULIN SCH (07:39)
[2021-02-07] MEDS: LEVOTHYROXINE 112 MCG TABLET PO SCH (07:57)
[2021-02-07] MEDS: METOPROLOL TARTRATE 25 MG TAB PO SCH ×2 (07:59→21:59)
[2021-02-07] MEDS: MELOXICAM 15 MG TABLET PO SCH (07:59)
[2021-02-07] MEDS: CHOLECALCIFEROL 1,000 UNIT TABLET PO SCH (08:00)
[2021-02-07] MEDS: LOSARTAN 100 MG TAB PO SCH (08:00)
[2021-02-07] MEDS: OMEPRAZOLE 20 MG CAPSULE.DR PO SCH (08:00)
[2021-02-07] MEDS: HYDROCHLOROTHIAZIDE 12.5 MG CAPSULE PO SCH (08:00)
[2021-02-07] MEDS: LIDODERM 5% PATCH TD SCH (11:14)
[2021-02-07 14:10] VITALS: BP 127/72
[2021-02-07 19:30] VITALS: BP 156/74
[2021-02-07 21:56] VITALS: BP 144/78
[2021-02-08 00:21] VITALS: BP 153/71
[2021-02-08 01:25] VITALS: BP 153/77
[2021-02-08] MEDS: ASPIRIN 81 MG TABLET EC PO SCH ×2 (06:14→07:44)
[2021-02-08] MEDS: HEPARIN 5,000 UNITS/ML, 1ML SQ SCH ×3 (06:17→17:15)
[2021-02-08 07:39] VITALS: BP 144/83
[2021-02-08] MEDS: HYDROCHLOROTHIAZIDE 12.5 MG CAPSULE PO SCH (07:43)
[2021-02-08] MEDS: CHOLECALCIFEROL 1,000 UNIT TABLET PO SCH (07:43)
[2021-02-08] MEDS: ACETAMINOPHEN 325 MG TABLET PO PRN ×2 (07:43→14:29)
[2021-02-08] MEDS: LEVOTHYROXINE 112 MCG TABLET PO SCH (07:44)
[2021-02-08] MEDS: MELOXICAM 15 MG TABLET PO SCH (07:44)
[2021-02-08] MEDS: METOPROLOL TARTRATE 25 MG TAB PO SCH (07:44)
[2021-02-08] MEDS: OMEPRAZOLE 20 MG CAPSULE.DR PO SCH (07:44)
[2021-02-08] MEDS: LOSARTAN 100 MG TAB PO SCH (07:44)
[2021-02-08 14:53] VITALS: BP 113/77
[2021-02-08] MEDS ORDERED: MELO15TA24 PO (16:28)
== END 2021-02-08 18:05 | DRG 554 ==
LOC: ED 20:00 → EDIP 02-04 01:32 → 5SO 02-04 03:07 → 4WST 02-04 18:52 → 3N 02-06 14:08
PROVIDERS: ADMIT Internal Medicine; ATTEND Hospitalist
PROC: 0T9B70Z Drainage of Bladder with Drainage Device, Via Natural or Artificial Opening (ICD-10-PCS; principal; 2021-02-03)
DX: M17.12 Unilateral primary osteoarthritis, left knee (principal); M48.56XA Collapsed vertebra, not elsewhere classified, lumbar region, initial encounter for fracture; R47.1 Dysarthria and anarthria; R47.81 Slurred speech; E03.9 Hypothyroidism, unspecified; I10 Essential (primary) hypertension; Z96.651 Presence of right artificial knee joint; Z66 Do not resuscitate; M48.03 Spinal stenosis, cervicothoracic region; E66.9 Obesity, unspecified; E11.9 Type 2 diabetes mellitus without complications; Z88.1 Allergy status to other antibiotic agents; Z86.73 Personal history of transient ischemic attack (TIA), and cerebral infarction without residual deficits; Z88.8 Allergy status to other drugs, medicaments and biological substances; Z79.899 Other long term (current) drug therapy; Z68.27 Body mass index [BMI] 27.0-27.9, adult; Z90.49 Acquired absence of other specified parts of digestive tract; Z82.3 Family history of stroke
CPT/HCPCS: 36415; 70450; 70496; 70498; 70551; 71045; 71275; 72148; 74174; 80047; 80048; 80061; 80307; 80320; 81003; 82607; 82962; 83036; 83735; 84100; 84145; 84484; 85025; 85610; 85730; 93005; 96374; 99285; G0378; J1644; J3010; Q9967; 92522-GN; 92523-GN; G0480; J1815